=== PATIENT | female | born 1970 | race Two or more races ===

== ENCOUNTER 2021-08-04 07:11 | Day surgery (SDC) | payer MEDICAID ==
[~2021-08-04] VITALS: Ht 165.1 cm; Wt 145.1 kg
[~2021-08-04 07:11] MED LIST: GLIP10TA9 PO; LATA0.0019 EACHEYE; LEVO50TA7 PO; LOSA-69 PO; METF-370 PO; TRIATAB3 PO
[2021-08-04] MEDS ORDERED: ANGIOMAX 250 MG VIAL IV ONE (08:26)
[2021-08-04] MEDS ORDERED: VERAPAMIL 2.5MG/ML INJ 2ML VIAL IV ONE (08:27)
[2021-08-04] MEDS ORDERED: HEPARIN SODIUM (PORCINE) 5000 UNITS/ML 1ML VIAL ONE (08:27)
[2021-08-04] MEDS ORDERED: fentaNYL CITRATE 100 MCG/2 ML VL ONE (08:27)
[2021-08-04] MEDS ORDERED: SODIUM CHL 0.9% 0 ML ONE (08:28)
[2021-08-04] MEDS ORDERED: diphenhdrAMINE HCL 50 MG/1 ML VL ONE (08:28)
[2021-08-04] MEDS ORDERED: MIDAZOLAM HCL 2MG/2ML 2ml VIAL (1mg/ml) ONE ×2 (08:28→08:35)
== END 2021-08-04 11:17 | disposition home or self-care (01) ==
LOC: CATH 07:11
PROVIDERS: ATTEND Internal Medicine
DX: R94.39 Abnormal result of other cardiovascular function study (principal); I25.118 Atherosclerotic heart disease of native coronary artery with other forms of angina pectoris; E11.9 Type 2 diabetes mellitus without complications; E03.9 Hypothyroidism, unspecified; Z87.891 Personal history of nicotine dependence; Z20.822 Contact with and (suspected) exposure to COVID-19
CPT/HCPCS: 93458; C1887; C1894; J1200; J1644; J2250; J7030; U0003; 99152; 99153